=== PATIENT | female | born 1955 | race Caucasian/White ===

== ENCOUNTER → 2017-11-03 15:36 | Outpatient (CLI) | payer OTHER, SELFPAY | PROVIDERS: Family Provider Internal Medicine; PCP Internal Medicine; Visit Provider Otolaryngology Otolaryngology/Facial Plastic Surgery | DX: J02.9 Acute pharyngitis, unspecified (principal) | CPT/HCPCS: 87070 ==

== ENCOUNTER 2017-11-07 16:13 | Emergency (ER) | payer OTHER, SELFPAY ==
[2017-11-07 16:16] VITALS: BP 139/77; PULSE 83; RESP 18; TEMP 36.8; O2SAT 99; BMI 22.8
--- NOTE | 2017-11-07 16:51 | EKG12_ITS ---
Test Reason : DIZZINESS Blood Pressure : / mmHG Vent. Rate : 068 BPM Atrial Rate : 068 BPM P-R Int : 140 ms QRS Dur : 078 ms QT Int : 390 ms P-R-T Axes : 069 058 034 degrees QTc Int : 414 ms Normal sinus rhythm Normal ECG Confirmed by DANAE GARZA, YISSEL ([id number]), international editorial producer CHARLEY FOFANA ([id number]) on 11/10/2017 1:12:18 PM Referred By: Miguel Angel Tomas Confirmed By:YISSEL FINK MD
--- NOTE | 2017-11-07 16:51 | CT_ITS ---
STUDY: CT BRAIN WITHOUT CONTRAST REASON FOR EXAM: Female, 62 years old. Dizzy RADIATION DOSAGE (If Supplied By Facility): CTDIvol = ( 44.99 ) mGy, DLP = ( 745.49 ) mGycm TECHNIQUE: Transaxial CT imaging of the brain was performed without administration of intravenous contrast material. Individualized dose optimization techniques were used for this CT. COMPARISON: None. FINDINGS: Normal soft tissue structures. Normal calvarium. Normal size ventricles and extra-axial spaces for the patient's age. Normal white matter tracts of the cerebral hemispheres. Normal basal ganglia and thalami. Normal brainstem. Normal cerebellum. There is no intracranial hemorrhage. There are no findings of an acute ischemic infarction. Normal visualized paranasal sinuses. CT/Brain/Head without Contrast IMPRESSION: No acute intracranial process. Electronically Signed: Rosanna Bonner MD at 17:58 EDT Tel , Service support ,
[2017-11-07] MEDS: 0.9% Normal Saline 1,000 ML 999 ML IV (17:00)
[2017-11-07 17:12] VITALS: BP 125/71; BP 125/77; BP 129/82; PULSE 78; PULSE 84; PULSE 97
[2017-11-07 17:15] LABS: Absolute Lymphocyte Count 1.42 X10^3/ul (0.83-4.51); Absolute Neutrophil Count 7.3 X10^3/uL (2.0-7.7); Basophil# 0.02 X10^3/uL; Basophil% 0.2 % (0-1); Eosinophil# 0.02 X10^3/uL; Eosinophils% 0.2 % (0-5); Hematocrit 39.5 % (37-47); Hemoglobin 13.3 g/dl (12.0-15.0); Lymphocyte # 1.42 X10^3/ul (4.0); Lymphocyte % 15.4 % (19-41); Mean Corp Hgb Conc 33.7 g/gl (32-36); Mean Corpuscular Hgb 29.2 pg (27.0-32.0); Mean Corpuscular Volume 86.8 fL (81-99); Mean Platelet Vol. 8.9 fl (6.2-12.0); Monocyte# 0.49 X10^3/uL; Monocyte% 5.3 % (0-10); Neutrophil # 7.26 X10^3/uL (2.7-7.7); Neutrophil % 78.8 % (47-70); Platelet Count 306 K/mm3 (150-450); RBC Distribution Width SD 40.3 fl (35.1-43.9); Red Blood Count 4.55 M/mm3 (4.2-5.4); White Blood Count 9.2 K/mm3 (4.4-11.0)
[2017-11-07 17:17] LABS: POSITIVE COUNT NO; POSITIVE DIFFERENTIAL NO; POSITIVE MORPHOLOGY NO
[2017-11-07 17:29] LABS: Anion Gap 10 (5-15); BUN 7 mg/dL (7-18); BUN/Creat Ratio 9.2 RATIO (10-20); Calcium,Total 9.5 mg/dL (8.5-10.1); Chloride 111 mmol/L (98-107); Creatinine, Serum 0.76 mg/dL (0.55-1.02); EST Glomerular Filtration Rate 82 mL/min (>60); Est Glom Filt Rate - Afr Amer 99 mL/min (>60); Estimated Creatinine Clearance 61.48 ml/min; Glucose 99 mg/dL (74-106); Potassium 3.6 mmol/L (3.5-5.1); Sodium Level 148 mmol/L (136-145)
[2017-11-07 18:13] VITALS: BP 118/85; PULSE 95; RESP 18
--- NOTE | 2017-11-07 18:31 | ED.VISSUMM ---
- ER Visit Summary Date of Service: 11/07/17 Chief Complaint: Dizzy History of Present Illness: The patient is a 62 F who presents with dizziness. She had a similar episode about 1 month ago. She describes this as more of a spinning sensation. She denies near syncope or syncope. She has had decreased hearing from the right ear and tinnitus in the right ear. She has seen otolaryngology multiple times. She was previously diagnosed with vertigo. She states that she just does not feel right during these episodes. However she denies any speech difficulty slurred speech paresthesias weakness or any other neurological symptoms. Last night her episode began after turning over in bed. Her episode 1-1/2 hours ago began without any specific activity or movement. She denies any other recent illness and review of systems otherwise negative. Physical Examination: Afebrile vitals are unremarkable Moist mucous membranes Heart regular rate and rhythm Lungs are clear Abdomen soft Alert oriented no focal or lateralizing neurological deficits no ataxia Test Results: EKG shows sinus rhythm at a rate of 68. CT the head shows no acute process. Laboratory studies notable for sodium 148 and chloride 111. Emergency Department Course and Treatment: She is workup is unremarkable except mild hypernatremia. She does report increased thirst and urination but states that she has been checked for diabetes mellitus. She is also scheduled for an MRI next week. Additionally I advised she will need further workup for her hypernatremia. However I do not believe she requires hospitalization at this point. I believe she can continue to undergo outpatient workup. She was instructed on specific signs and symptoms to monitor for and conditions under which to return to the emergency department. She was given a dose of meclizine here and a prescription for the same. All questions answered bedside. Patient agreeable to plan. Patient discharged. Treatment Plan: [] Disposition: Discharge Impression: Vertigo Mild hypernatremia This note was generated with [employer] dictation software. It may contain incorrect words, spelling, and punctuation that were not noted in review of the chart prior to signing ED Disposition - Plan for ED Patient: Chief Complaint: Dizziness Referrals: Marcy Booker MD [Primary Care Provider] -
--- NOTE | 2017-11-07 18:34 | ED.DEP ---
ED Disposition - Plan for ED Patient: Chief Complaint: Dizziness Instructions: ED Vertigo Unspecified, Discharge Instructions for Hypernatremia Referrals: Marcy Booker MD [Primary Care Provider] -
[2017-11-07] MEDS: Meclizine HCl 25 MG Tablet PO (18:47)
[2017-11-07 18:48] VITALS: BP 118/85; PULSE 93; RESP 18
--- NOTE | 2017-11-07 19:38 | PCM.HP.STD ---
History of Present Illness Date of Admission: 11/07/17 The patient is a 62 y/o F w/ PMHx: Chronic Constipation, Insomnia, Rosacea, OA who presents w/ history of vertigo ~ 1 month prior, resolved without medications w/ follow-up with ENT w/ noted decreased hearing in the R ear, occurred again while rolling over 1.5 hour prior to arrival M did not work MRI Brain Vertigo, Ongoing, Atypical w/ R Hearing Decrease: Unclear etiololgy, already evaluated per ENT several times. EKG in ED w/ sinus rhythm without evidence of acute ischemia, CT brain without acute findings troponin normal x 1. Will admit MS w/ telemetry, maintain on fall precautions, obtain admission orthostatic, continue treatment with scheduled meclizine, PRN zofran, IVFs. Will obtain ECHO. PT consultation, MRI brain given ongoing recurrent disease w/ associated hearing changes R ear. Hypernatremic w/ Ongoing Polyuria and Polydipsia: Unclear specific etiology, will obtain UOsm, Leonardo to further assist in delineation, trend BMP, defer any IVFs. Past Medical History Allergies amoxicillin Allergy (Verified 11/07/17 16:14) Unknown bacitracin [From Neosporin ([id number])] Allergy (Verified 11/07/17 16:14) Unknown cefaclor [From Ceclor] Allergy (Verified 11/07/17 16:14) Unknown neomycin [From Neosporin ([id number]-[id number])] Allergy (Verified 11/07/17 16:14) Unknown polymyxin B [From Neosporin (zsv-[id number]-[id number])] Allergy (Verified 11/07/17 16:14) Unknown Home Medications: Ambulatory Orders Medication Instructions Recorded Zolpidem Tartrate [Ambien 2.5 mg PO QHS PRN PRN 08/21/16 (Generic)] Ibuprofen [Advil] 200 mg PO Q4H PRN PRN 11/07/17 Meclizine HCl [Antivert] 25 mg PO TID #20 tab 11/07/17 Metronidazole [Metrogel] 1 applic TP DAILY 11/07/17 Multivitamin [Daily Multiple 1 each PO DAILY 11/07/17 Vitamin] Polyethylene Glycol 3350 [Miralax] 17 gm PO DAILY 11/07/17 Smoking Status: Never smoker - Physical Exam Vital Signs Temp Pulse Resp BP Pulse Ox 98.3 F 93 18 118/85 H 99 11/07/17 16:16 11/07/17 18:48 11/07/17 18:48 11/07/17 18:48 11/07/17 16:16 Weight: 125 lb Body Mass Index (BMI) 22.8 Laboratory Tests Past 24 Hrs 11/07/17 11/07/17 17:00 17:00 WBC 9.2 RBC 4.55 Hgb 13.3 Hct 39.5 MCV 86.8 MCH 29.2 MCHC 33.7 RDW 13.0 RDW Differential 40.3 Plt Count 306 MPV 8.9 Immature Gran % (Auto) 0.100 Neut % (Auto) 78.8 H Lymph % (Auto) 15.4 L [place] % (Auto) 5.3 Eos % (Auto) 0.2 Baso % (Auto) 0.2 Absolute Neuts (auto) 7.3 Absolute Lymphs (auto) 1.42 Total Counted Not Reportable Sodium 148 H Potassium 3.6 Chloride 111 H Carbon Dioxide 27.0 Anion Gap 10 BUN 7 Creatinine 0.76 Estim Creat Clear Calc 61.48 Est GFR (MDRD) Af Amer 99 Est GFR (MDRD) Non-Af 82 BUN/Creatinine Ratio 9.2 L Glucose 99 Calcium 9.5 Troponin I < 0.015
--- NOTE | 2017-11-07 19:48 | HP.PCM_ITS ---
History of Present Illness Date of Admission: 11/07/17 The patient is a 62 y/o F w/ PMHx: Chronic Constipation, Insomnia, Rosacea, OA who presents w/ history of vertigo ~ 1 month prior, resolved without medications w/ follow-up with ENT w/ noted decreased hearing in the R ear, occurred again while rolling over 1.5 hour prior to arrival M did not work MRI Brain Vertigo, Ongoing, Atypical w/ R Hearing Decrease: Unclear etiololgy, already evaluated per ENT several times. EKG in ED w/ sinus rhythm without evidence of acute ischemia, CT brain without acute findings troponin normal x 1. Will admit MS w/ telemetry, maintain on fall precautions, obtain admission orthostatic, continue treatment with scheduled meclizine, PRN zofran, IVFs. Will obtain ECHO. PT consultation, MRI brain given ongoing recurrent disease w/ associated hearing changes R ear. Hypernatremic w/ Ongoing Polyuria and Polydipsia: Unclear specific etiology, will obtain UOsm, Leonardo to further assist in delineation, trend BMP, defer any IVFs. Past Medical History Allergies amoxicillin Allergy (Verified 11/07/17 16:14) Unknown bacitracin [From Neosporin ([id number]-[id number]-[id number])] Allergy (Verified 11/07/17 16:14) Unknown cefaclor [From Ceclor] Allergy (Verified 11/07/17 16:14) Unknown neomycin [From Neosporin ([id number]-pnz-[id number])] Allergy (Verified 11/07/17 16:14) Unknown polymyxin B [From Neosporin ([id number]-mtc-eldkh)] Allergy (Verified 11/07/17 16:14) Unknown Home Medications: Ambulatory Orders Medication Instructions Recorded Zolpidem Tartrate [Ambien 2.5 mg PO QHS PRN PRN 08/21/16 (Generic)] Ibuprofen [Advil] 200 mg PO Q4H PRN PRN 11/07/17 Meclizine HCl [Antivert] 25 mg PO TID #20 tab 11/07/17 Metronidazole [Metrogel] 1 applic TP DAILY 11/07/17 Multivitamin [Daily Multiple 1 each PO DAILY 11/07/17 Vitamin] Polyethylene Glycol 3350 [Miralax] 17 gm PO DAILY 11/07/17 Smoking Status: Never smoker - Physical Exam Vital Signs Temp Pulse Resp BP Pulse Ox 98.3 F 93 18 118/85 H 99 11/07/17 16:16 11/07/17 18:48 11/07/17 18:48 11/07/17 18:48 11/07/17 16:16 Weight: 125 lb Body Mass Index (BMI) 22.8 Laboratory Tests Past 24 Hrs 11/07/17 11/07/17 17:00 17:00 WBC 9.2 RBC 4.55 Hgb 13.3 Hct 39.5 MCV 86.8 MCH 29.2 MCHC 33.7 RDW 13.0 RDW Differential 40.3 Plt Count 306 MPV 8.9 Immature Gran % (Auto) 0.100 Neut % (Auto) 78.8 H Lymph % (Auto) 15.4 L [place] % (Auto) 5.3 Eos % (Auto) 0.2 Baso % (Auto) 0.2 Absolute Neuts (auto) 7.3 Absolute Lymphs (auto) 1.42 Total Counted Not Reportable Sodium 148 H Potassium 3.6 Chloride 111 H Carbon Dioxide 27.0 Anion Gap 10 BUN 7 Creatinine 0.76 Estim Creat Clear Calc 61.48 Est GFR (MDRD) Af Amer 99 Est GFR (MDRD) Non-Af 82 BUN/Creatinine Ratio 9.2 L Glucose 99 Calcium 9.5 Troponin I < 0.015
[2017-11-07 20:01] VITALS: BP 119/77; PULSE 92; RESP 16; O2SAT 99
[2017-11-07 21:21] VITALS: BP 126/79; PULSE 80; RESP 16
== END 2017-11-07 21:29 | disposition short-term general hospital (02) ==
LOC: ED 16:59 → MS3 20:05 → ED 20:45
PROVIDERS: Emergency Provider Emergency Medicine; Family Provider Internal Medicine; PCP Internal Medicine
DX: R42 Dizziness and giddiness (principal); E87.0 Hyperosmolality and hypernatremia; Z79.899 Other long term (current) drug therapy
CPT/HCPCS: 70450; 80048; 84484; 85025; 93005; 96360; 96361; 99285; J7030

== ENCOUNTER 2017-11-17 18:22 | Emergency (ER) | payer OTHER, SELFPAY ==
[2017-11-17 18:23] VITALS: BP 138/80; PULSE 78; RESP 16; TEMP 36.8; O2SAT 99; BMI 21.9
[2017-11-17] MEDS: 0.45% Normal Saline 1,000 ML 200 ML IV (19:05)
[2017-11-17 19:12] LABS: Absolute Lymphocyte Count 2.17 X10^3/ul (0.83-4.51); Absolute Neutrophil Count 5.5 X10^3/uL (2.0-7.7); Basophil# 0.03 X10^3/uL; Basophil% 0.4 % (0-1); Eosinophil# 0.02 X10^3/uL; Eosinophils% 0.2 % (0-5); Hematocrit 41.7 % (37-47); Lymphocyte # 2.17 X10^3/ul (4.0); Lymphocyte % 25.5 % (19-41); Mean Corp Hgb Conc 33.6 g/gl (32-36); Mean Corpuscular Hgb 28.8 pg (27.0-32.0); Mean Corpuscular Volume 85.8 fL (81-99); Monocyte# 0.76 X10^3/uL; Monocyte% 8.9 % (0-10); Neutrophil % 64.6 % (47-70); Platelet Count 351 K/mm3 (150-450); RBC Distribution Width CV 13.2 % (11.6-14.6); RBC Distribution Width SD 40.7 fl (35.1-43.9); Red Blood Count 4.86 M/mm3 (4.2-5.4); White Blood Count 8.5 K/mm3 (4.4-11.0)
[2017-11-17 19:13] LABS: POSITIVE COUNT NO; POSITIVE DIFFERENTIAL NO; POSITIVE MORPHOLOGY NO
[2017-11-17 19:17] LABS: Anion Gap 7 (5-15); BUN 5 mg/dL (7-18); BUN/Creat Ratio 6.9 RATIO (10-20); Calcium,Total 9.2 mg/dL (8.5-10.1); Chloride 107 mmol/L (98-107); Creatinine, Serum 0.73 mg/dL (0.55-1.02); EST Glomerular Filtration Rate 87 mL/min (>60); Est Glom Filt Rate - Afr Amer 105 mL/min (>60); Estimated Creatinine Clearance 64.01 ml/min; Glucose 98 mg/dL (74-106); Potassium 3.6 mmol/L (3.5-5.1); Sodium Level 140 mmol/L (136-145)
[2017-11-17 19:29] VITALS: BP 113/69; BP 117/71; BP 118/79; PULSE 79; PULSE 81; PULSE 82
--- NOTE | 2017-11-17 19:57 | ED.DCSUM_ITS ---
- ER Visit Summary Date of Service: 11/17/17 Chief Complaint: Lightheaded History of Present Illness: The patient is a [address] Booker and Dr. Tomas. She reports that she has a history of M?ni?re's disease. She has ringing in her ears that is chronic and unchanged. She has had loss of hearing. She reports that this is unchanged. She denies any ear pain. Patient reports this morning approximately 1030 she began feeling lightheaded and having a vague sense of movement. States that it is unchanged with standing. Is increased with movement of her head. She denies any slurred speech or double vision. No headache. No numbness, tingling, or weakness. She does report she has intermittent nausea. She reports that she has had diarrhea the past 2 mornings in the morning only. There was been no blood in her stools. Physical Examination: Vitals: Stable. Afebrile. General: Well-nourished and well-developed. Head: Normocephalic atraumatic. Neck: Supple, no lymphadenopathy. No JVD. Nontender. Cardiovascular: Regular rate and rhythm. No murmurs. Respiratory: No respiratory distress. Clear to auscultation bilaterally. Abdominal: Soft, nontender, nondistended, normal bowel sounds. No guarding, rebound, or peritoneal signs. Back: Nontender. Extremities: Nontender, no edema. Skin: Normal color, no rash. Neurologic: Alert and oriented ?3. Cranial nerves II through XII are intact. Normal strength and sensation. Psych: Normal affect. Test Results: CBC is normal. Chem-7 is more for BUN of 5. Emergency Department Course and Treatment: Orthostatic vital signs were negative. Patient is resting comfortably. She refused Zofran or Antivert. Treatment Plan: Patient will be discharged instructions push fluids. Follow-up Dr. Tomas and/or Dr. Booker in 1 to days if not improving. Return to the emergency department for any worsening symptoms. Disposition: To home in improved and stable condition. Impression: 1. M?ni?re's disease. This note was generated with [employer] software. It may contain incorrect words, spelling, and punctuation that were not noted in review of the chart prior to signing ED Disposition - Plan for ED Patient: Disposition: Home or Assisted Living Chief Complaint: Dizziness Instructions: ED Vertigo Unspecified Referrals: Marcy Booker MD [Primary Care Provider] - 1-2 Days if not improving
[2017-11-17 20:05] VITALS: BP 123/76; PULSE 79; RESP 16; O2SAT 99
== END 2017-11-17 20:06 | disposition home or self-care (01) ==
LOC: ED 18:49
PROVIDERS: Emergency Provider Emergency Medicine; Family Provider Internal Medicine; PCP Internal Medicine
DX: H81.09 Meniere's disease, unspecified ear (principal); E87.0 Hyperosmolality and hypernatremia; Z79.899 Other long term (current) drug therapy
CPT/HCPCS: 80048; 85025; 96360; 99284; A4216

== ENCOUNTER → 2017-12-14 16:17 | Outpatient (CLI) | payer OTHER, SELFPAY | PROVIDERS: Family Provider Internal Medicine; PCP Internal Medicine; Visit Provider Otolaryngology Otolaryngology/Facial Plastic Surgery | DX: J02.9 Acute pharyngitis, unspecified (principal) | CPT/HCPCS: 87070 ==

== ENCOUNTER → 2018-01-08 17:26 | Outpatient (CLI) | payer OTHER, SELFPAY ==
--- NOTE | 2018-01-08 17:42 | RAD_ITS ---
STUDY: X-RAY - CERVICAL SPINE REASON FOR EXAM: Female, 62 years old. Pain TECHNIQUE: 5 view(s) of the cervical spine were obtained. COMPARISON: None FINDINGS: Normal anterior atlantoaxial articulation. Normal odontoid process. Normal cervical lordosis. Normal vertebral bodies. Minimal spurring at the endplates. Minimally narrowed C4-5 disc space. Small uncovertebral spurs slightly protruding into the C4-5 to C6-7 intervertebral neuroforamina. The soft tissue structures are unremarkable. RAD/Cerv Spine 4 or 5 Views IMPRESSION: Mild degenerative changes of the visualized cervical spine. Electronically Signed: Blayne Leo DO at 23:54 EDT Tel [phone], Service support ,
== END ==
PROVIDERS: Family Provider Internal Medicine; PCP Internal Medicine; Visit Provider Nurse Practitioner Primary Care
DX: M54.2 Cervicalgia (principal)
CPT/HCPCS: 72050

== ENCOUNTER → 2018-03-31 14:41 | Outpatient (CLI) | payer OTHER, SELFPAY ==
--- NOTE | 2018-03-31 14:43 | BI_ITS ---
MAMMOGRAPHY - BILATERAL SCREENING REASON FOR EXAM: Female, 62 years old. Routine annual screening examination. PERTINENT HISTORY: Daughter with breast cancer. 04/02/2018 TECHNIQUE: Digital bilateral breast siomara (3D mammographic acquisition) in the CC and MLO projections. 2-D mediolateral oblique (MLO) and craniocaudad (CC) views of both breasts were obtained. CAD: Full Field Digital Mammography with Computer Added Detection was performed. COMPARISON: Mar 25 2017 10:40am, Mar 19 2016 10:37am FINDINGS: Breast Composition: The breasts are heterogeneously dense, which may obscure small masses. There are no dominant masses or suspicious calcifications. No other significant abnormalities are identified. BI/SCREENING MAMM (CAD), BILAT IMPRESSION: Stable bilateral screening mammogram. Yearly follow-up mammogram recommended. (A) ASSESSMENT CATEGORY: BIRADS Category 2: Benign. A letter regarding these results will be sent to the patient by the facility within 30 days. Approximately 10% of breast cancers are not detected by mammography. A normal mammogram should not delay biopsy of a clinically suspicious abnormality. [id number] Electronically Signed: Rudi Grace MD at 13:08 EDT Tel , Service support ,
== END ==
PROVIDERS: Family Provider Internal Medicine; PCP Internal Medicine; Referring Provider Obstetrics & Gynecology; Visit Provider Obstetrics & Gynecology
DX: Z12.31 Encounter for screening mammogram for malignant neoplasm of breast (principal)
CPT/HCPCS: 77063; 77067

== ENCOUNTER → 2019-04-13 | Outpatient (CLI) | payer OTHER, SELFPAY ==
--- NOTE | 2019-04-13 12:54 | BI_ITS ---
MAMMOGRAPHY - BILATERAL SCREENING REASON FOR EXAM: Female, 63 years old. Routine annual screening examination. PERTINENT HISTORY: Aunt with breast cancer. TECHNIQUE: Digital bilateral breast oscar (3D mammographic acquisition) in the CC and MLO projections. 2-D mediolateral oblique (MLO) and craniocaudad (CC) views of both breasts were obtained. CAD: Full Field Digital Mammography with Computer Added Detection was performed. COMPARISON: Comparison is made with prior study March 31, 2018 and March 25, 2017. FINDINGS: Breast Composition: The breasts are heterogeneously dense, which may obscure small masses. There are no dominant masses or suspicious calcifications. There is a 6 mm x 12 mm well-defined nodule in the deep central medial aspect of the right breast. Adjacent to this, there is a similar-appearing 1.2 cm nodule. Correlation with ultrasound is recommended. No other significant abnormalities are identified. BI/SCREEN MAMM (CAD) W/OSCAR BILAT IMPRESSION: Well-defined nodular densities in the right breast as described. Correlation with ultrasound is recommended. ASSESSMENT CATEGORY: BIRADS Category 0: Incomplete. Need additional imaging evaluation. A letter regarding these results will be sent to the patient by the facility within 30 days. Approximately 10% of breast cancers are not detected by mammography. A normal mammogram should not delay biopsy of a clinically suspicious abnormality. [id number] Electronically Signed: Shaw Larsen, at 14:41 EDT , Service support ,
== END | disposition home or self-care (01) ==
LOC: OPBI 12:51
PROVIDERS: Family Provider Family Medicine; PCP Family Medicine; Referring Provider Obstetrics & Gynecology; Visit Provider Obstetrics & Gynecology
DX: Z12.31 Encounter for screening mammogram for malignant neoplasm of breast (principal)
CPT/HCPCS: 77063; 77067

== ENCOUNTER → 2019-04-18 | Outpatient (CLI) | payer OTHER, SELFPAY ==
--- NOTE | 2019-04-18 07:52 | US_ITS ---
STUDY: ULTRASOUND BREAST - RIGHT REASON FOR EXAM: Female, 63 years old. Abnormal screening mammogram. TECHNIQUE: Axial and longitudinal images of the RIGHT breast were performed with a high resolution ultrasound transducer. COMPARISON: Comparison is made with prior mammogram dated April 13, 2019. FINDINGS: RIGHT Breast: There is a 1.2 cm x 1 cm x 0.7 cm hypoechoic solid/cystic nodule at the 11:00 position of the breast at 2 cm from the nipple. A biopsy recommended. There is also evidence of a 0.9 cm x 1.5 cm x 0.4 cm hypoechoic nodule at the 10:00 position of the breast at 5 cm from nipple. A biopsy is recommended for further evaluation. US/Breast Limited Unilateral IMPRESSION: The mammographic abnormality corresponds to 2 hypoechoic solid nodules at the 10 and 11:00 position of the breast as described. A biopsy is recommended. ASSESSMENT CATEGORY: BIRADS Category 4: Suspicious - Biopsy Should Be Considered. A letter regarding these results will be sent to the patient by the facility within 30 days. Electronically Signed: Shaw Larsen, at 11:22 EDT , Service support ,
== END | disposition home or self-care (01) ==
PROVIDERS: Family Provider Family Medicine; PCP Family Medicine; Referring Provider Obstetrics & Gynecology; Visit Provider Obstetrics & Gynecology
DX: R92.8 Other abnormal and inconclusive findings on diagnostic imaging of breast (principal)
CPT/HCPCS: 76642

== ENCOUNTER → 2019-05-10 | Outpatient (CLI) | payer OTHER, SELFPAY ==
[2019-05-10 14:57] VITALS: BMI 21.9
--- NOTE | 2019-05-10 15:00 | BRBX_PTH ---
PATIENT: LIONEL BARTON LOC: [facility] U#:[id number] AGE/SX: 63/F ROOM: RE05/10/[address]: Dr. Rafa De La Cruz MD : [id number] BED: DIS: 05/10/2019 SPEC #: [id number] RECD: 05/10/19 15:44 STATUS: AMENA ROB #: [id number] DIANA: 05/10/19 15:[address]: Rafa De La Cruz DEPT: SURGICAL PATHOLOGY RECD BY: Lv Rawls ENTERED: 05/11/19 09:18 SP TYPE: BREAST BX OTHR DR: Dr. Denton Hayes MD Tissues: A - Right breast, NOS B - Right breast, NOS Procedures: Surgery Specimen Level IV HEADER OPERATION: Right breast biopsy x2 PRE-OP DIAGNOSIS: Abnormal breast ultrasound TISSUE SUBMITTED: A - Right breast at 9 o'clock, B - Right breast at 11 o'clock +2 MICROSCOPIC DIAGNOSIS A. Right breast, 9 o'clock, core biopsy: Hyalinized fibroadenoma. Negative for atypia or malignancy. B. Right breast, 9 o'clock +2, core biopsy: Hyalinized fibroadenoma. Negative for atypia or malignancy. TAQUERIA:debbie 05/12/19 COMMENT Correlation with clinical, radiologic findings and appropriate follow up are necessary. MICROSCOPIC DESCRIPTION Slides are reviewed. GROSS DESCRIPTION A - Received in fixative is one container labeled with the patient's name and designated right breast 9 o'clock. The specimen consists of two elongated fragments of stanford-yellow fibroadipose tissue that in aggregate measure 1 x 0.2 x 0.1 cm. The entire specimen is submitted in one cassette. B - Received in fixative is one container labeled with the patient's name and designated right breast 11 o'clock +2. The specimen consists of two elongated fragments of stanford-yellow fibroadipose tissue that in aggregate measure 1.3 x 0.3 x 0.1 cm. The entire specimen is submitted in one cassette. / TAQUERIA:debbie 05/11/19 TC:4 CPT: 90390 x2
== END | disposition home or self-care (01) ==
LOC: LABSPEC 16:12
PROVIDERS: Family Provider Family Medicine; PCP Family Medicine; Referring Provider Surgery; Visit Provider Surgery
DX: R92.8 Other abnormal and inconclusive findings on diagnostic imaging of breast (principal)
CPT/HCPCS: 88305

== ENCOUNTER → 2020-04-25 | Outpatient (CLI) | payer OTHER, SELFPAY ==
[2019-05-10 14:57] VITALS: BMI 21.9
--- NOTE | 2020-04-25 12:05 | BI_ITS ---
MAMMOGRAPHY - BILATERAL SCREENING REASON FOR EXAM: Female, 64 years old. Routine annual screening examination. PERTINENT HISTORY: Aunt with breast cancer. TECHNIQUE: Digital bilateral breast oscar (3D mammographic acquisition) in the CC and MLO projections. 2-D mediolateral oblique (MLO) and craniocaudad (CC) views of both breasts were obtained. CAD: Full Field Digital Mammography with Computer Added Detection was performed. COMPARISON: Comparison is made with prior study dated 04/13/2019 and 03/31/2018. FINDINGS: Breast Composition: The breasts are heterogeneously dense, which may obscure small masses. There are no dominant masses or suspicious calcifications. Since prior examination, the patient underwent ultrasound-guided breast biopsy of a nodular density in the upper deep lateral portion of the right breast. The previously seen nodular density has decreased in size. A tissue clip marker is seen at the biopsy site. No other significant abnormalities are identified. BI/SCREEN MAMM (CAD) W/OSCAR BILAT IMPRESSION: Stable bilateral screening mammogram. Yearly follow-up mammogram recommended. (A) ASSESSMENT CATEGORY: BIRADS Category 2: Benign. A letter regarding these results will be sent to the patient by the facility within 30 days. Approximately 10% of breast cancers are not detected by mammography. A normal mammogram should not delay biopsy of a clinically suspicious abnormality. [id number] Electronically Signed: Shaw Larsen, at 13:45 EDT , Service support ,
== END | disposition home or self-care (01) ==
LOC: OPBI 12:05
PROVIDERS: PCP Family Medicine; Referring Provider Surgery; Visit Provider Surgery
DX: Z12.31 Encounter for screening mammogram for malignant neoplasm of breast (principal)
CPT/HCPCS: 77063; 77067

== ENCOUNTER → 2020-06-18 17:18 | Outpatient (CLI) | payer OTHER, SELFPAY | PROVIDERS: PCP Family Medicine; Referring Provider Otolaryngology; Visit Provider Otolaryngology | DX: J06.9 Acute upper respiratory infection, unspecified (principal) | CPT/HCPCS: 87635; C9803; U0003 ==

== ENCOUNTER → 2021-05-01 09:52 | Outpatient (CLI) | payer OTHER, SELFPAY ==
--- NOTE | 2021-05-01 09:55 | BI_ITS ---
MAMMOGRAPHY - BILATERAL SCREENING REASON FOR EXAM: Female, 65 years old. Routine annual screening examination. PERTINENT HISTORY: Aunt with breast cancer. TECHNIQUE: Digital bilateral breast oscar (3D mammographic acquisition) in the CC and MLO projections. 2-D mediolateral oblique (MLO) and craniocaudad (CC) views of both breasts were obtained. CAD: Full Field Digital Mammography with Computer Added Detection was performed. COMPARISON: Comparison is made with prior study dated 04/25/2020 and 04/13/2019. FINDINGS: Breast Composition: The breasts are heterogeneously dense, which may obscure small masses. There are no dominant masses or suspicious calcifications. A tissue clip marker is seen within a 7 mm nodule in the deep upper lateral portion of the right breast. Stable benign-appearing bilateral axillary lymph nodes. No other significant abnormalities are identified. There has been no significant change since the prior study. BI/SCRN MAMM (CAD)W/OSCAR BILAT IMPRESSION: Stable bilateral screening mammogram. Yearly follow-up mammogram recommended. (A) ASSESSMENT CATEGORY: BIRADS Category 2: Benign. A letter regarding these results will be sent to the patient by the facility within 30 days. Approximately 10% of breast cancers are not detected by mammography. A normal mammogram should not delay biopsy of a clinically suspicious abnormality. [id number] Electronically Signed: Shaw Larsen MD at 10:55 EDT , Service support ,
== END ==
PROVIDERS: PCP Family Medicine; Referring Provider Obstetrics & Gynecology; Visit Provider Obstetrics & Gynecology
DX: Z12.31 Encounter for screening mammogram for malignant neoplasm of breast (principal)
CPT/HCPCS: 77063; 77067

== ENCOUNTER → 2022-04-29 | Outpatient (CLI) | payer MEDICARE, SELFPAY | END | disposition home or self-care (01) | LOC: LABSPEC 15:21 | PROVIDERS: PCP Family Medicine; Visit Provider Otolaryngology | DX: J02.9 Acute pharyngitis, unspecified (principal) | CPT/HCPCS: 87070 ==

== ENCOUNTER → 2022-05-02 | Outpatient (CLI) | payer MEDICARE, BC, SELFPAY ==
--- NOTE | 2022-05-02 13:27 | BI_ITS ---
MAMMOGRAPHY - BILATERAL SCREENING REASON FOR EXAM: Female, 66 years old. Routine annual screening examination. PERTINENT HISTORY: Aunts with breast cancer. Remote left excisional breast biopsy. TECHNIQUE: Digital bilateral breast oscar (3D mammographic acquisition) in the CC and MLO projections. 2-D mediolateral oblique (MLO) and craniocaudad (CC) views of both breasts were obtained. CAD: Full Field Digital Mammography with Computer Added Detection was performed. COMPARISON: Comparison is made with prior study dated 05/01/2021 and 04/25/2020. FINDINGS: Breast Composition: The breasts are extremely dense, which lowers the sensitivity of mammography. There are no dominant masses or suspicious calcifications. A tissue clip marker is once again seen in the 7 mm nodule in the deep upper lateral aspect of the right breast stable benign appearing bilateral axillary lymph nodes. No other significant abnormalities are identified. There has been no significant change since the prior study. BI/SCRN MAMM (CAD)W/OSCAR BILAT IMPRESSION: Stable bilateral screening mammogram. Yearly follow-up mammogram recommended. (A) ASSESSMENT CATEGORY: BIRADS Category 2: Benign. A letter regarding these results will be sent to the patient by the facility within 30 days. Approximately 10% of breast cancers are not detected by mammography. A normal mammogram should not delay biopsy of a clinically suspicious abnormality. [id number] Electronically Signed: Shaw Larsen MD at 14:13 EDT ,
== END | disposition home or self-care (01) ==
LOC: OPBI 13:25
PROVIDERS: PCP Family Medicine; Referring Provider Obstetrics & Gynecology; Visit Provider Obstetrics & Gynecology
DX: Z12.31 Encounter for screening mammogram for malignant neoplasm of breast (principal)
CPT/HCPCS: 77063; 77067

== ENCOUNTER → 2022-09-16 | Outpatient (CLI) | payer MEDICARE, BC, SELFPAY ==
--- NOTE | 2022-09-16 14:26 | BI_ITS ---
MAMMOGRAPHY - UNILATERAL DIAGNOSTIC: LEFT BREAST REASON FOR EXAM: Female, 67 years old. Palpable lump in the retroareolar region of the left breast. PERTINENT HISTORY: Aunts with breast cancer. Remote left excisional breast biopsy. TECHNIQUE: Digital unilateral breast siomara (3D mammographic acquisition) in the CC and MLO projections. 2-D mediolateral oblique (MLO) and craniocaudad (CC) views of both breasts were obtained. CAD: Full Field Digital Mammography with Computer Added Detection was performed. COMPARISON: Comparison is made with prior study May 02, 2022 and May 01, 2021. FINDINGS: Breast Composition: The breasts are extremely dense, which lowers the sensitivity of mammography. There are no dominant masses or suspicious calcifications. No other significant abnormalities are identified. BI/DIAG MAMM W/CAD, UNILAT IMPRESSION: Stable unilateral diagnostic mammogram. With the patient''s history of a palpable lump in the left breast, correlation with targeted ultrasound is recommended. ASSESSMENT CATEGORY: BIRADS Category 0: Incomplete. Need additional imaging evaluation. A letter regarding these results will be sent to the patient by the facility within 30 days. Approximately 10% of breast cancers are not detected by mammography. A normal mammogram should not delay biopsy of a clinically suspicious abnormality. Electronically Signed: Shaw Larsen MD at 15:31 EDT ,
--- NOTE | 2022-09-16 15:30 | US_ITS ---
STUDY: ULTRASOUND BREAST - LEFT REASON FOR EXAM: Female, 67 years old. Palpable lump left breast. TECHNIQUE: Axial and longitudinal images of the LEFT breast were performed with a high resolution ultrasound transducer. # OF IMAGES: 31 COMPARISON: Comparison is made with prior mammogram done earlier today. FINDINGS: LEFT Breast: The palpable abnormality corresponds to a 7 mm x 8 mm x 6 mm slightly irregular hypoechoic nodule at the 2:00 position of breast at 2 cm from nipple. Increased peripheral vascularity is seen. Biopsy recommended. US/Breast Limited Unilateral IMPRESSION: The pathologic abnormality corresponds to a 7 mm x 8 mm x 6 mm slightly irregular hypoechoic solid nodule at the 2:00 position of the breast at 2 cm from nipple. Biopsy recommended. ASSESSMENT CATEGORY: BIRADS Category 4: Suspicious - Biopsy Should Be Considered. A letter regarding these results will be sent to the patient by the facility within 30 days. Electronically Signed: Shaw Larsen MD at 15:53 EDT ,
== END | disposition home or self-care (01) ==
PROVIDERS: PCP Family Medicine; Referring Provider Obstetrics & Gynecology; Visit Provider Obstetrics & Gynecology
DX: N63.42 Unspecified lump in left breast, subareolar (principal)
CPT/HCPCS: 76642; 77061; 77065; G0279

== ENCOUNTER → 2022-09-23 | Outpatient (CLI) | payer MEDICARE, BC, SELFPAY ==
--- NOTE | 2022-09-23 | BRBX_PTH ---
PATIENT: LIONEL BARTON [facility] U#:[id number] AGE/SX: 67/F ROOM: RE09/23/[address]: Dr. Rafa De La Cruz MD : 1955 BED: DIS: 09/23/2022 SPEC #: [id number] RECD: 09/23/22 09:32 STATUS: AMENA RIVAS #: [id number] DIANA: 09/23/22 00:[address]: Rafa De La Cruz DEPT: SURGICAL PATHOLOGY RECD BY: Narcisa Nichols ENTERED: 09/23/22 10:10 SP TYPE: BREAST BX OTHR DR: Dr. Denton Hayes MD Tissues: Left breast, NOS Procedures: Surgery Specimen Level IV HEADER OPERATION: Left breast biopsy PRE-OP DIAGNOSIS: Left breast mass TISSUE SUBMITTED: Left breast tissue MICROSCOPIC DIAGNOSIS Left breast, core biopsy: Densely collagenized tissue. Focal intraductal hyperplasia without atypia. Focal duct ectasia. No evidence of malignancy. AM:debbie 09/24/2022 MICROSCOPIC DESCRIPTION Slides are reviewed. GROSS DESCRIPTION Received in fixative is one container labeled with the patient's name and designated left breast tissue. The specimen consists of multiple elongated fragments of stanford-yellow fibroadipose tissue that in aggregate measure 1.0 x 0.3 x 0.1 cm. The entire specimen is submitted in one cassette. / SJ:debbie 09/23/2022 TC:5 CPT: 54382
== END | disposition home or self-care (01) ==
LOC: LABSPEC 09:40
PROVIDERS: PCP Family Medicine; Referring Provider Surgery; Visit Provider Surgery
DX: N60.42 Mammary duct ectasia of left breast (principal)
CPT/HCPCS: 88305

== ENCOUNTER → 2022-10-22 | Outpatient (CLI) | payer MEDICARE, BC, SELFPAY ==
--- NOTE | 2022-10-22 13:00 | BRBX_PTH ---
PATIENT: LIONEL BARTON [facility]: [facility] U#:[id number] AGE/SX: 67/F ROOM: RE10/22/[address]: Dr. Rafa De La Cruz MD : 1955 BED: DIS: 10/22/2022 SPEC #: [id number] RECD: 10/22/22 15:24 STATUS: AMNEA RENathanael #: [id number] DIANA: 10/22/22 13:[address]: Rafa De La Cruz DEPT: SURGICAL PATHOLOGY RECD BY: Narcisa Nichols ENTERED: 10/23/22 10:13 SP TYPE: BREAST BX OTHR DR: Dr. Denton Hayes MD Tissues: Left breast, NOS Procedures: Surgery Specimen Level IV HEADER OPERATION: Left breast biopsy PRE-OP DIAGNOSIS: Left breast TISSUE SUBMITTED: Left breast MICROSCOPIC DIAGNOSIS Left breast, biopsy: Fibroadenoma. Focal changes suggestive of previous biopsy site. Focal intraductal hyperplasia without atypia. AM:debbie 10/24/2022 MICROSCOPIC DESCRIPTION Slides are reviewed. GROSS DESCRIPTION Received in fixative is one container labeled with the patient's name and designated left breast. The specimen consists of multiple elongated fragments of stanford-yellow fibroadipose tissue that in aggregate measure 2.5 x 1.0 x 0.1 cm. The entire specimen is submitted in one cassette. / SJ:debbie 10/23/2022 TC:5 CPT: 56350
== END | disposition home or self-care (01) ==
LOC: LABSPEC 17:04
PROVIDERS: PCP Family Medicine; Visit Provider Surgery
DX: D24.2 Benign neoplasm of left breast (principal); N60.92 Unspecified benign mammary dysplasia of left breast
CPT/HCPCS: 88305

== ENCOUNTER 2022-12-26 16:11 | Outpatient (CLI) | payer MEDICARE, BC, SELFPAY ==
--- NOTE | 2022-12-26 | ASPS_PTH ---
PATIENT: LIONEL BARTON [facility] U#:[id number] AGE/SX: 67/F ROOM: RE12/26/[address]: Dr. Rafa De La Cruz MD : 1955 BED: DIS: 12/26/2022 SPEC #: [id number] RECD: 12/26/22 15:57 STATUS: AMENA RIVAS #: [id number] DIANA: 12/26/22 00:[address]: Rafa De La Cruz DEPT: CYTOLOGY RECD BY: Ron Hayden ENTERED: 12/29/22 12:47 SP TYPE: ASPIRATION OTHR DR: Dr. Denton Hayes MD Tissues: Thyroid gland, NOS Procedures: Special Stain Group II Cytology Other HEADER OPERATION: Fine needle aspiration thyroid nodule PRE-OP DIAGNOSIS: Left thyroid nodule TISSUE SUBMITTED: Left thyroid nodule x8 slides DIAGNOSIS CYTOLOGY Fine needle aspiration, left thyroid nodule (smears): Negative, consistent with benign follicular nodule with cystic change ([place] Category II). See comment. AM:debbei 12/31/2022 COMMENT The [place] System for thyroid diagnostic categorization was used in the evaluation of this case. The specimen is adequate for evaluation. CYTOLOGY STUDY Slides are reviewed. CYTOLOGY GROSS Received are eight smears labeled with the patient's name and designated per the requisition as left thyroid nodule. Submitted for staining. / debbie 12/29/2022 TC:5 CPT: 11408
== END 2022-12-26 23:59 | disposition home or self-care (01) ==
LOC: LABSPEC 16:13
PROVIDERS: PCP Family Medicine; Referring Provider Surgery; Visit Provider Surgery
DX: E04.1 Nontoxic single thyroid nodule (principal)
CPT/HCPCS: 88161; 88313

== ENCOUNTER → 2023-05-05 | Outpatient (CLI) | payer MEDICARE, BC, SELFPAY ==
--- NOTE | 2023-05-05 11:44 | BI_ITS ---
MAMMOGRAPHY - BILATERAL SCREENING REASON FOR EXAM: Female, 67 years old. Routine annual screening examination. PERTINENT HISTORY: Aunt with breast cancer. There is been a change in the appearance of the right nipple. TECHNIQUE: Digital bilateral breast oscar (3D mammographic acquisition) in the CC and MLO projections. 2-D mediolateral oblique (MLO) and craniocaudad (CC) views of both breasts were obtained. CAD: Full Field Digital Mammography with Computer Added Detection was performed. COMPARISON: Comparison is made with prior study dated May 02, 2022 and May 01, 2021. FINDINGS: Breast Composition: The breasts are extremely dense, which lowers the sensitivity of mammography. There are no dominant masses or suspicious calcifications. Stable patient marker within a 7 mm nodule in the deep upper lateral portion of the right breast. There are 2 adjacent tissue clip marker is in the upper central lateral aspect of the left breast. No other significant abnormalities are identified. There has been no significant change since the prior study. BI/SCRN MAMM (CAD)W/OSCAR BILAT IMPRESSION: Stable bilateral screening mammogram. Yearly follow-up mammogram recommended. (A) ASSESSMENT CATEGORY: BIRADS Category 2: Benign. A letter regarding these results will be sent to the patient by the facility within 30 days. Approximately 10% of breast cancers are not detected by mammography. A normal mammogram should not delay biopsy of a clinically suspicious abnormality. [id number] Electronically Signed: Shaw Larsen MD at 12:42 EST ,
== END | disposition home or self-care (01) ==
LOC: OPBI 11:43
PROVIDERS: PCP Family Medicine; Referring Provider Surgery; Visit Provider Surgery
DX: Z12.31 Encounter for screening mammogram for malignant neoplasm of breast (principal)
CPT/HCPCS: 77063; 77067

== ENCOUNTER → 2024-05-06 | Outpatient (CLI) | payer MEDICARE, BC, SELFPAY | END | disposition home or self-care (01) | LOC: OPBI 09:48 | PROVIDERS: PCP Family Medicine; Referring Provider Obstetrics & Gynecology; Visit Provider Obstetrics & Gynecology | DX: Z12.31 Encounter for screening mammogram for malignant neoplasm of breast (principal) | CPT/HCPCS: 77063; 77067 ==

== ENCOUNTER → 2024-10-19 | Outpatient (CLI) | payer MEDICARE, BC, SELFPAY ==
--- NOTE | 2024-10-19 09:20 | US_ITS ---
PROCEDURE: BREAST LIMITED UNILATERAL 10/19/2024 REASON FOR EXAM: SUBAREOLAR MASS TECHNIQUE: Targeted left breast ultrasound. COMPARISON: Prior mammogram done earlier in the day. FINDINGS: Left breast ultrasound was targeted to the retroareolar region of the left breast.. The breast tissue appears sonographically normal. No cyst, solid mass, or suspicious shadowing. US/Breast Limited Unilateral IMPRESSION: Impression: No sonographic abnormality is seen. Birads: BI-RADS 1: NEGATIVE. RECOMMEND ANNUAL MAMMOGRAPHIC SCREENING. Reading Location: [place] [address]
--- NOTE | 2024-10-19 09:20 | BI_ITS ---
EXAM: Unilateral diagnostic left mammogram. CLINICAL HISTORY: Left breast mass. Prior biopsy. COMPARISON: Comparison is made with prior mammogram dated May 06, 2024. TECHNIQUE: Compression spot views of the left breast as well as mediolateral oblique views were obtained. FINDINGS: Moderate amount of fibroglandular tissue. No dominant mass lesion is seen. A tissue clip marker is seen in the retroareolar region of the left breast. With the patient's history of a palpable lump, correlation with ultrasound recommended. BI/DIAG MAMM W/CAD, UNILAT IMPRESSION: No mammographic abnormality is seen. Sonographic correlation recommended. BI-RADS category 0. Reading Location: [facility]
== END | disposition home or self-care (01) ==
LOC: OPBI 09:18
PROVIDERS: PCP Family Medicine; Referring Provider Nurse Practitioner Primary Care; Visit Provider Nurse Practitioner Primary Care
DX: N63.42 Unspecified lump in left breast, subareolar (principal)
CPT/HCPCS: 76642; 77061; 77065; G0279

== ENCOUNTER → 2025-05-12 | Outpatient (CLI) | payer MEDICARE, BC, SELFPAY ==
--- NOTE | 2025-05-12 11:53 | BI_ITS ---
EXAM: SCRN MAMM (CAD)W/OSCAR BILAT DATE: 05/12/2025 CLINICAL HISTORY: F, Age 69 y/o , SCREENING Aunts with breast cancer. Prior bilateral breast aspirations and left breast biopsy for fibroadenoma. TECHNIQUE: Procedure Code: [id number] Modality: MG Procedure: SCRN MAMM (CAD)W/OSCAR BILAT COMPARISON: Prior exam(s) dated October 19, 2024.. FINDINGS: TISSUE DENSITY: The breasts are heterogeneously dense, which may obscure small masses. Bilateral Breast Mammographic Findings: No significant masses, calcifications or other abnormalities are identified. A tissue clip marker is seen in the slightly upper central retroareolar region of the left breast. A tissue clip marker is also seen in the central lateral aspect of the right breast. No suspicious masses, areas of developing architectural distortion, or suspicious calcifications. There has been no significant interval change. BI/SCRN MAMM (CAD)W/OSCAR BILAT IMPRESSION: Stable bilateral screening mammogram. OVERALL FINAL ASSESSMENT BI-RADS 2: BENIGN RECOMMENDATION: Routine annual follow-up in 1 Year Additional Recommendation none A letter with findings and recommendations will be mailed to the patient. Reading Location: [place] [address]
== END | disposition home or self-care (01) ==
LOC: OPBI 11:51
PROVIDERS: PCP Family Medicine; Referring Provider Obstetrics & Gynecology; Visit Provider Obstetrics & Gynecology
DX: Z12.31 Encounter for screening mammogram for malignant neoplasm of breast (principal)
CPT/HCPCS: 77063; 77067